=== PATIENT | male | born 1990 | race Caucasian/White ===

== ENCOUNTER 2018-09-06 10:51 | Emergency (ER) | payer OTHER ==
[2018-09-06] MEDS ORDERED: Tetracaine HCl/PF 0.5% 4 ML Bottle EYELF ONE (11:17)
--- NOTE | 2018-09-06 11:58 | EDM.PDOC ---
ED HPI GENERAL MEDICAL PROBLEM - General Chief Complaint: Eye Problems Stated Complaint: METAL/DIRT IN EYE Time Seen by Provider: 09/06/18 11:13 Source of Information: Reports: Patient History Limitations: Reports: No Limitations - History of Present Illness INITIAL COMMENTS - FREE TEXT/NARRATIVE: Presents reporting that yesterday he was using a wire brush to clean some equipment. He was wearing eye protection but some dust flew up underneath his goggles. He had some left eye irritation last night but this morning his left eye is reddened and itchy and watery. He does wear contacts but he does not have his left contact and at this time. left eye Pain Score (Numeric/FACES): 7 - Related Data Allergies Allergy/AdvReac Type Severity Reaction Status Date / Time No Known Allergies Allergy Verified 09/06/18 11:10 Home Meds: Home Meds Christiano/Polymyx B Sulf/Dexameth [Ppelbb-Qzgvf-Ejarwvjf Eye Drop] 3 drop OP QID #1 drops.susp 09/06/18 [Rx] Past Medical History - Past Health History Medical/Surgical History: Denies Medical/Surgical History - Infectious Disease History Infectious Disease History: Reports: None Social & Family History - Family History Family Medical History: Noncontributory - Tobacco Use Smoking Status *Q: Current Every Day Smoker Years of Tobacco use: 10 Packs/Tins Daily: 1 - Recreational Drug Use Recreational Drug Use: No ED ROS GENERAL - Review of Systems Review Of Systems: ROS reveals no pertinent complaints other than HPI. ED EXAM GENERAL W FULL EYE - Physical Exam Exam: See Below Exam Limited By: No Limitations General Appearance: Alert, No Apparent Distress Eye Exam: Bilateral Eye: EOMI, PERRL Visual Acuity (L) 20/: 200 (At baseline without contacts) With Correction: No Eyelids: Left: Other (Mild swelling) Conjunctiva & Sclera: Left: Injected Extraocular Movements: Bilateral: Intact Pupillary Size: Bilateral: 4 mm Pupillary Reaction: Bilateral: Brisk Ears: Normal External Exam Nose: Normal Inspection Throat/Mouth: Normal Inspection Head: Atraumatic, Normocephalic Neck: Normal Inspection Respiratory/Chest: No Respiratory Distress Cardiovascular: Normal Peripheral Pulses Neurological: Alert, Oriented Psychiatric: Normal Affect, Normal Mood Skin Exam: Warm, Dry, Intact, Normal Color, No Rash Course - Vital Signs Last Recorded V/S: Last Vital Signs Temp 36.6 C 09/06/18 11:10 Pulse 73 09/06/18 11:10 Resp 18 09/06/18 11:10 BP 141/70 H 09/06/18 11:10 Pulse Ox 96 09/06/18 11:10 - Orders/Labs/Meds Meds: Medications Discontinued Medications Generic Name Dose Route Start Last Admin Trade Name Freq PRN Reason Stop Dose Admin Tetracaine HCl 1 ml 09/06/18 11:17 09/06/18 11:51 Tetracaine 0.5% Steri-Unit Camille EYELF 09/06/18 11:18 1 piece ASDIRECTED ONE Administration - Re-Assessments/Exams Free Text/Narrative Re-Assessment/Exam: 09/06/18 11:56 Exam under fluorescein stain, no foreign body, corneal abrasion. Departure - Departure Time of Disposition: 11:56 Disposition: Home, Self-Care 01 Condition: Good Clinical Impression: Conjunctivitis Qualifiers: Conjunctivitis type: acute Acute conjunctivitis type: unspecified Laterality: left Qualified Code(s): H10.32 - Unspecified acute conjunctivitis, left eye - Discharge Information Referrals: PCP,Unknown [Primary Care Provider] - [facility] [Outside] Additional Instructions: 1. Eyedrops 3 drops 4 times a day left eye until symptoms resolve 2. Follow-up promptly in ophthalmology if symptoms do not resolve quickly or as expected
== END 2018-09-06 12:14 | disposition home or self-care (01) ==
LOC: MW.ED 10:51
DX: H10.32 Unspecified acute conjunctivitis, left eye (principal); F17.210 Nicotine dependence, cigarettes, uncomplicated
CPT/HCPCS: 99282; 99283